=== PATIENT | male | born 1985 | race Caucasian/White ===

== ENCOUNTER 2017-02-21 13:56 | Emergency (ER) | payer BC, OTHER ==
[2017-02-21 14:30] VITALS: BP 130/82; PULSE 62; RESP 20; TEMP 98.1
--- NOTE | 2017-02-21 15:01 | XR ---
EXAMINATION TYPE: XR ankle complete LT DATE OF EXAM: 02/21/2017 COMPARISON: NONE HISTORY: Pain TECHNIQUE: 3 views of the left ankle are submitted for evaluation. FINDINGS: There is no evidence for fracture or dislocation. Ankle mortise is intact. Soft tissues are within normal limits. IMPRESSION: 1. No evidence for acute fracture.
--- NOTE | 2017-02-21 15:02 | XR ---
EXAMINATION TYPE: XR foot limited LT DATE OF EXAM: 02/21/2017 CLINICAL HISTORY: pain TECHNIQUE: Frontal, lateral and oblique images of the left foot are obtained. COMPARISON: None. FINDINGS: There is no acute fracture/dislocation evident. The joint spaces appear within normal perales its. The overlying soft tissue appears unremarkable. IMPRESSION: There is no acute fracture or dislocation. ICD 10 NO FRACTURE, INITIAL EVALUATION
--- NOTE | 2017-02-21 15:09 | ED ---
Lower Extremity Injury HPI - General Chief Complaint: Extremity Injury, Lower Stated Complaint: ankle injury-[facility] Time Seen by Provider: 02/21/17 14:35 Source: patient, RN notes reviewed, old records reviewed Mode of arrival: ambulatory Limitations: no limitations - History of Present Illness Initial Comments: 31-year-old male presents the ED chief complaint of left ankle swelling and pain after stepping off of a curb and twisting it. Patient reports that he was on duty when this occurred. Patient states that he has had previous left ankle sprains. Patient does have some tenderness over the lateral malleolus with some swelling. Patient denies any previous surgeries over the ankle. Denies any peripheral paresthesias. Patient does have some limited range of motion but it is causing some pain. Denies any knee or calf pain.Patient denies any recent fever, chills, shortness of breath, chest pain, back pain, abdominal pain , nausea vomiting, numbness or tingling, dysuria or hematuria, constipation or diarrhea, headaches or visual changes, or any other current symptoms - Related Data Previous Rx's Medication Instructions Recorded Ibuprofen [Motrin] 600 mg PO Q6HR PRN #20 tab 02/15/16 Ibuprofen [Motrin] 600 mg PO Q8HR PRN #20 tab 02/21/17 Allergies Allergy/AdvReac Type Severity Reaction Status Date / Time No Known Allergies Allergy Verified 02/21/17 14:30 Review of Systems ROS Statement: Those systems with pertinent positive or pertinent negative responses have been documented in the HPI. ROS Other: All systems not noted in ROS Statement are negative. Past Medical History Past Medical History: No Reported History History of Any Multi-Drug Resistant Organisms: None Reported Past Surgical History: Orthopedic Surgery Additional Past Surgical History / Comment(s): right knee Past Psychological History: No Psychological Hx Reported Smoking Status: Never smoker Past Alcohol Use History: Occasional Past Drug Use History: None Reported General Exam - General Exam Comments Initial Comments: Pleasant 31 year old male, no distress Limitations: no limitations General appearance: alert, in no apparent distress Head exam: Present: atraumatic, normocephalic, normal inspection Eye exam: Present: normal appearance, PERRL, EOMI. Absent: scleral icterus, conjunctival injection, periorbital swelling ENT exam: Present: normal exam, mucous membranes moist Neck exam: Present: normal inspection. Absent: tenderness, meningismus, lymphadenopathy Respiratory exam: Present: normal lung sounds bilaterally. Absent: respiratory distress, wheezes, rales, rhonchi, stridor Cardiovascular Exam: Present: regular rate, normal rhythm, normal heart sounds. Absent: systolic murmur, diastolic murmur, rubs, gallop, clicks GI/Abdominal exam: Present: soft, normal bowel sounds. Absent: distended, tenderness, guarding, rebound, rigid Extremities exam: Present: normal inspection, full ROM, normal capillary refill. Absent: tenderness, pedal edema, joint swelling, calf tenderness Left Lower Leg exam: Present: normal inspection, full ROM Ankle exam: Present: full ROM, tenderness (lateral tenderness. ), swelling. Absent: normal inspection Foot/Toe exam: Present: normal inspection, full ROM Neurovascular tendon exam: Present: no vascular compromise Gait: observed and normal Back exam: Present: normal inspection Neurological exam: Present: alert, oriented X3, CN II-XII intact Psychiatric exam: Present: normal affect, normal mood Skin exam: Present: warm, dry, intact, normal color. Absent: rash Course Vital Signs 02/21/17 14:28 Temperature 98.1 F Pulse Rate 62 Respiratory 20 Rate Blood Pressure 130/82 O2 Sat by Pulse 99 Oximetry Medical Decision Making - Medical Decision Making 31-year-old male presents the ED chief complaint of left ankle swelling and pain after stepping off of a curb and twisting it. Patient reports that he was on duty when this occurred. Patient states that he has had previous left ankle sprains. Patient does have some tenderness over the lateral malleolus with some swelling. X-rays reviewed and negative for any acute process. Patient was given an Ortiz wrap. Also written for crutches. Discussed to be nonweightbearing for the next few days as well as applying ice and elevating his extremity. Patient will be discharged with a prescription for Motrin. Patient advised to follow[facility]up with [facility] of symptoms continue to persist. Patient is history plan will comply. Return parameters were discussed. - Radiology Data Radiology results: report reviewed X-ray of right foot and ankle are negative for any acute process. Disposition Clinical Impression: Ankle sprain Disposition: HOME SELF-CARE Condition: Good Instructions: Ankle Sprain (ED) Additional Instructions: Patient has rest, ice, elevate extremity. Follow-up with orthosis if symptoms continue to persist after the next week. Patient should limit activity over the foot. Return to the emergency department if any alarming signs or symptoms occur. Prescriptions: Ibuprofen [Motrin] 600 mg PO Q8HR PRN #20 tab PRN Reason: Pain Referrals: Jessica Miller MD [Primary Care Provider] - 1-2 days Time of Disposition: 15:08
== END 2017-02-21 15:49 | disposition home or self-care (01) ==
LOC: EC 13:56
DX: S93.402A Sprain of unspecified ligament of left ankle, initial encounter (principal); X50.1XXA Overexertion from prolonged static or awkward postures, initial encounter; Y93.02 Activity, running; Y99.0 Civilian activity done for income or pay; Y92.69 Other specified industrial and construction area as the place of occurrence of the external cause
CPT/HCPCS: 99283

== ENCOUNTER 2020-10-10 04:19 | Emergency (ER) | payer OTHER ==
[2020-10-10 04:31] VITALS: TEMP 98
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
[2020-10-10 05:02] VITALS: RESP 18
[2020-10-10 05:10] VITALS: BP 126/74; PULSE 67
== END 2020-10-10 05:10 | disposition home or self-care (01) ==
LOC: EC 04:19
DX: T59.811A Toxic effect of smoke, accidental (unintentional), initial encounter (principal); Y92.29 Other specified public building as the place of occurrence of the external cause; Y99.0 Civilian activity done for income or pay
CPT/HCPCS: 99283